=== PATIENT | female | born 1985 | race American Indian/Alaskan Native ===

== ENCOUNTER 2016-10-26 09:54 | Emergency (ER) | payer OTHER ==
[~2016-10-26] VITALS: Ht 162.6 cm; Wt 62.5 kg
[2016-10-26 10:01] VITALS: Ht 162.6 cm; Wt 62.5 kg
[2016-10-26] MEDS ORDERED: IBUP-1542 PO (10:28)
[2016-10-26] MEDS ORDERED: AZIT250T94 PO (10:28)
[2016-10-26] MEDS ORDERED: IBUPROFEN 600 MG TAB PO ONE (10:30)
--- NOTE | 2016-10-26 10:31 | ERD ---
ER Documentation Chief Complaint Date/Time DATE: 10/26/16 TIME: 10:29 Chief Complaint LEFT EAR PAIN SINCE YESTERDAY, WORSE THIS MORNING HPI This 31-year-old female complains of left hip pain since yesterday. She also has cough and congestion. She denies fevers, bleeding or discharge. ROS All systems reviewed and are negative except as per history of present illness. Medications Home Meds Active Scripts Ibuprofen* (Motrin*) 600 Mg Tab, 600 MG PO Q6, #15 TAB Prov:CURTIS GREEN MD 10/26/16 Azithromycin* (Zithromax*) 250 Mg Tablet, 250 MG PO .ZPACK DIRECTED, #6 TAB TAKE 500 MG (2 TABS) THE FIRST DAY THEN 250 MG (1 TAB) DAYS 2-5 Prov:CURTIS GREEN MD 10/26/16 Allergies Allergies: Coded Allergies: No Known Allergy (Unverified , 10/26/16) Physical Exam Vitals Vital Signs Date Time Temp Pulse Resp B/P Pulse Ox O2 Delivery O2 Flow Rate FiO2 10/26/16 10:01 98.1 83 18 119/79 99 Physical Exam Const: []Alert, not ill-appearing. Head: Atraumatic Eyes: Normal Conjunctiva ENT: Normal External Ears, Nose and Mouth.Left TM is red and bulging. There is no abnormalities in the canal. There is no mastoid tenderness. Neck: Full range of motion..~ No meningismus. Resp: Clear to auscultation bilaterally Cardio: Regular rate and rhythm, no murmurs Abd: Soft, non tender, non distended. Normal bowel sounds Skin: No petechiae or rashes Back: No midline or flank tenderness Ext: No cyanosis, or edema Neur: Awake and alert Psych: Normal Mood and Affect Results 24 hrs Current Medications Medications (Trade) Dose Ordered Sig/Russ Route PRN Reason Start Time Stop Time Status Last Admin Dose Admin Ibuprofen (Motrin) 600 mg ONCE ONCE PO 10/26/16 10:30 10/26/16 10:31 Procedures/MDM Patient has signs of left bullous myringitis or otitis media. There is no evidence of mastoiditis or perforation. She will be treated with Zithromax and ibuprofen and return precautions and primary care follow-up. The patient was stable with no new complaints during the ER course. Clinically, there is no current evidence to suggest meningitis, sepsis, acute abdomen, pneumonia, acute coronary syndrome, pulmonary embolism, or any other emergent condition appearing to require further evaluation or hospitalization. The patient should certainly return for any new or worsening symptoms per the aftercare instructions. They should otherwise follow-up with her primary care doctor for reevaluation this week. Departure Diagnosis: Primary Impression: Left ear pain Condition: Stable Patient Instructions: Otitis Media, Abx Tx (Adult) Additional Instructions: Recheck for new or worsening symptoms or primary care doctor. CURTIS GREEN MD Oct 26, 2016 10:31
== END 2016-10-26 10:45 | disposition home or self-care (01) ==
LOC: FTE 09:54
DX: H92.02 Otalgia, left ear (principal)
CPT/HCPCS: Z7502; Z7610; 99283

== ENCOUNTER 2016-11-30 20:20 | Emergency (ER) | payer OTHER ==
[~2016-11-30] VITALS: Ht 167.6 cm; Wt 70.0 kg
[~2016-11-30 20:20] MED LIST: AZIT250T94 PO; IBUP-1542 PO
[2016-11-30 20:25] VITALS: Ht 167.6 cm; Wt 70.0 kg
[2016-11-30] MEDS ORDERED: BACI28.34 TOP (21:09)
--- NOTE | 2016-11-30 22:51 | ERD ---
ER Documentation Chief Complaint Chief Complaint bib self, cc: left hand index finger laceration HPI Patient is a 31-year-old [id number] female presenting to the emergency department with complaints of laceration to her left index finger which occurred just prior to arrival when she accidentally sliced her finger with a kitchen knife. She believes her tetanus is up-to-date currently. She denies other injuries, denies pain or other symptoms at this time. ROS All systems reviewed and are negative except as per history of present illness. Medications Home Meds Active Scripts Bacitracin* (Bacitracin Zinc Oint*) 28.35 Gm Oint, 1 APPLIC TOP BID, #1 TUB APPLI TO Prov:TAMANNA GUZMAN PA-C 11/30/16 Ibuprofen* (Motrin*) 600 Mg Tab, 600 MG PO Q6, #15 TAB Prov:CURTIS GREEN MD 10/26/16 Azithromycin* (Zithromax*) 250 Mg Tablet, 250 MG PO .ZPACK DIRECTED, #6 TAB TAKE 500 MG (2 TABS) THE FIRST DAY THEN 250 MG (1 TAB) DAYS 2-5 Prov:CURTIS GREEN MD 10/26/16 Allergies Allergies: Coded Allergies: No Known Allergy (Unverified , 10/26/16) PMhx/Soc Medical and Surgical Hx: pt denies Medical Hx, pt denies Surgical Hx Hx Alcohol Use: Yes (every other day) Hx Substance Use: No Hx Tobacco Use: Yes Smoking Status: Current some day smoker Physical Exam Vitals Vital Signs Date Time Temp Pulse Resp B/P Pulse Ox O2 Delivery O2 Flow Rate FiO2 11/30/16 20:25 98.5 81 19 131/83 100 Physical Exam Const: Nontoxic, well-appearing female in no acute distress. Head: Atraumatic Eyes: Normal Conjunctiva ENT: Normal External Ears, Nose and Mouth. Ext: There is an approximate 1 cm laceration just proximal to the PIP joint of the left index finger on the dorsal surface. There is no active bleeding currently. Neur: Awake and alert Psych: Normal Mood and Affect Procedures/MDM 31-year-old female presents to the emergency department with complaints of laceration to her left index finger. Laceration Repair by me: Anesthesia: Not indicated Location: Dorsal aspect of the left index finger just proximal to the PIP joint. Tendon/Joint/Nerves: No injury Foreign body: None detected after copious irrigation and exploration Technique: Dermabond skin glue Complexity: No subcutaneous sutures/mucosal repair/ edge excision Post Closure Length: 1 cm Patient's bleeding was easily controlled in the department and there is no indication of anemia. No evidence of compartment syndrome, neurologic injury, vascular injury, open joint, tendon laceration, or foreign body. Patient is appropriate for outpatient follow up. 48 hour wound check. Scar minimization instructions given. Departure Diagnosis: Primary Impression: Finger laceration Encounter type: initial encounter Finger: index finger Damage to nail status: without damage Foreign body presence: without foreign body Laterality: left Qualified Code: S61.211A - Laceration of left index finger without foreign body without damage to nail, initial encounter Condition: Fair Patient Instructions: Laceration, Extremity (Skin Glue) Referrals: [facility] YOU HAVE RECEIVED A MEDICAL SCREENING EXAM AND THE RESULTS INDICATE THAT YOU DO NOT HAVE A CONDITION THAT REQUIRES URGENT TREATMENT IN THE EMERGENCY DEPARTMENT. FURTHER EVALUATION AND TREATMENT OF YOUR CONDITION CAN WAIT UNTIL YOU ARE SEEN IN YOUR DOCTORS OFFICE WITHIN THE NEXT 1-2 DAYS. IT IS YOUR RESPONSIBILITY TO MAKE AN APPOINTMENT FOR FOLOW-UP CARE. IF YOU HAVE A PRIMARY DOCTOR --you should call your primary doctor and schedule an appointment IF YOU DO NOT HAVE A PRIMARY DOCTOR YOU CAN CALL OUR PHYSICIAN REFERRAL HOTLINE AT IF YOU CAN NOT AFFORD TO SEE A PHYSICIAN YOU CAN CHOSE FROM THE FOLLOWING [facility] [place] [address] [facility]. [facility] [place] [address] [facility] [facility] [address] [facility]. [facility] [address] [facility]. [facility] [address] [facility]. [facility]. [address] Additional Instructions: Call your primary care doctor TOMORROW for an appointment during the next 1-2 days.See the doctor sooner or return here if your condition worsens before your appointment time. TAMANNA GUZMAN PA-C Nov 30, 2016 22:51
== END 2016-11-30 21:16 | disposition home or self-care (01) ==
LOC: FTE 20:20
DX: S61.211A Laceration without foreign body of left index finger without damage to nail, initial encounter (principal); F17.210 Nicotine dependence, cigarettes, uncomplicated; W26.0XXA Contact with knife, initial encounter; Y92.9 Unspecified place or not applicable
CPT/HCPCS: 12001; Z7502

== ENCOUNTER 2016-12-02 12:11 | Emergency (ER) | payer OTHER ==
[~2016-12-02] VITALS: Ht 162.6 cm; Wt 60.5 kg
[~2016-12-02 12:11] MED LIST changes: +BACI28.34 TOP
[2016-12-02 12:15] VITALS: Ht 162.6 cm; Wt 60.5 kg
--- NOTE | 2016-12-02 13:45 | ERD ---
ER Documentation Chief Complaint Chief Complaint LEFT EAR PAIN W/DRAINING X2 DAYS HPI 31 year old female comes in with left posterior ear pain with difficulty hearing for 2 days. Pain is achy, diffuse and she states that this occurred about 2 months ago she was treated with Zithromax and her hearing has decreased since then. She feels like there is some draining and popping sensation in the ear as well. She denies fevers or chills. ROS All systems reviewed and are negative except as per history of present illness. Medications Home Meds Active Scripts Ibuprofen* (Motrin*) 600 Mg Tab, 600 MG PO Q6, #30 TAB Prov:MARIA L LOPEZ PA-C 12/02/16 Ciprofloxacin Hcl* (Ciprofloxacin Hcl*) 500 Mg Tablet, 500 MG PO BID for 10 Days , TAB Prov:MARIA L LOPEZ PA-C 12/02/16 Amoxicillin/Potassium Clav (Amox-Clav 875-125 mg Tablet) 875-125 mg Tab, 1 TAB PO BID for 10 Days, #20 TAB Prov:MARIA L LOPEZ PA-C 12/02/16 Bacitracin* (Bacitracin Zinc Oint*) 28.35 Gm Oint, 1 APPLIC TOP BID, #1 TUB APPLI TO Prov:TAMANNA GUZMAN PA-C 11/30/16 Ibuprofen* (Motrin*) 600 Mg Tab, 600 MG PO Q6, #15 TAB Prov:CURTIS GREEN MD 10/26/16 Azithromycin* (Zithromax*) 250 Mg Tablet, 250 MG PO .ZPACK DIRECTED, #6 TAB TAKE 500 MG (2 TABS) THE FIRST DAY THEN 250 MG (1 TAB) DAYS 2-5 Prov:CURTIS GREEN MD 10/26/16 Allergies Allergies: Coded Allergies: No Known Allergy (Unverified , 10/26/16) PMhx/Soc Hx Alcohol Use: Yes (every other day) Hx Substance Use: No Hx Tobacco Use: Yes Physical Exam Vitals Vital Signs Date Time Temp Pulse Resp B/P Pulse Ox O2 Delivery O2 Flow Rate FiO2 12/02/16 12:15 98.6 89 18 118/75 100 Physical Exam General: Well-developed, well-nourished. The patient appears in no acute distress. HEENT: Head is normocephalic, atraumatic. No scleral icterus. Ear, right TM is normal, left TM is bulging and erythematous, there is possible tenderness across mastoid and postauricular region. There is no evidence of mass, cellulitis. No rashes. Neck: Supple. Nontender. Lungs: Clear to auscultation. Normal air movement. Heart: Regular rate and rhythm. S1 and S2 are normal. No murmurs, gallops, or rubs. Abdomen: Soft, nontender, nondistended. Bowel sounds are normoactive. Extremities: No clubbing or cyanosis. Normal pulses. Moving extremities x 4. No weakness. Neurologic: Alert and oriented 3. No focal deficits. Skin: Normal turgor. No rash or lesions. Results 24 hrs DIAGNOSTIC IMAGING REPORT Patient: DICKSON RASMUSSEN : 1985 Age: 31 Sex: F MR #: [id number] DOS: 12/02/16 1328 Ordering MD: MARIA L LOPEZ PA-C Location: [facility] Room/Bed: PROCEDURE: CT orbits noncontrast CLINICAL INDICATION: Left ear pain. Evaluate for mastoiditis. TECHNIQUE: Noncontrast CT of the orbits was obtained. Coronal and sagittal re- formations were provided. The administered radiation dose was CTDI 30.47 mGy, DLP 408.69 mGycm. One or more of the following dose reduction techniques were used: Automated exposure control, Adjustment of the mA and/or kV according to patient size, or Use of iterative reconstruction technique. COMPARISON: There are no similar studies submitted for comparison. FINDINGS: Evaluation is limited without intravenous contrast. There is no acute fracture.The bilateral globes are intact.There is no orbital hematoma.The bilateral optic nerves are normal in size.The bilateral extraocular muscles are within normal limits. No definite orbital mass is identified. There is a small left sphenoid sinus mucous retention cyst/polyp. There is mild bilateral ethmoid sinus mucosal thickening. There is minimal bilateral maxillary sinus mucosal thickening. The visualized portions of the brain are unremarkable. No destructive osseous lesion is identified. There are mild left mastoid air cell effusions. There is mild opacification of the left middle ear along the medial aspect of the left tympanic membrane. There is no definite evidence of ossicular erosions. IMPRESSION: Evaluation for abscess is limited without intravenous contrast. 1. Mild opacification of the left middle ear along the medial aspect of the left tympanic membrane. There is no definite evidence of ossicular erosions. There are mild left mastoid air cell effusions. Findings are suggestive of mild left otitis media/mastoiditis. No definite left mastoid subperiosteal abscess is identified. A cholesteatoma is not entirely excluded. 2. The bilateral globes are intact. There is no post septal orbital hematoma. 3. No acute fracture. Further findings as detailed above. RPTAT: PP .Guerrero Mayer MD, MD Date Time Electronically viewed and signed by .Guerrero Mayer MD, MD on 12/02/2016 14:04 .F/ Procedures/MDM 31-year-old female presents with left-sided posterior ear pain and inner ear pain, most consistent with acute otitis media. There is questionable tenderness that is postauricular, but is not distinctly over the mastoid process. CT does not show obvious mastoiditis, this is most likely otitis media with referred pain to the external ear. She will be covered, I with Augmentin and Cipro, and is to follow-up with ENT outpatient. Findings of the CT and patient presentation were discussed with my attending physician, Dr. Reagan agrees with the plan. Departure Diagnosis: Primary Impression: Otitis media, left Condition: MARIA L Reilly PA-C Dec 02, 2016 13:44
--- NOTE | 2016-12-02 14:04 | RADRPT ---
PROCEDURE: CT orbits noncontrast CLINICAL INDICATION: Left ear pain. Evaluate for mastoiditis. TECHNIQUE: Noncontrast CT of the orbits was obtained. Coronal and sagittal re-formations were provid ed. The administered radiation dose was CTDI 30.47 mGy, DLP 408.69 mGycm. One or more of the follow ing dose reduction techniques were used: Automated exposure control, Adjustment of the mA and/or kV according to patient size, or Use of iterative reconstruction technique. COMPARISON: There are no similar studies submitted for comparison. FINDINGS: Evaluation is limited without intravenous contrast. There is no acute fracture.The bilateral globes are intact.There is no orbital hematoma.The bilatera l optic nerves are normal in size.The bilateral extraocular muscles are within normal limits. No def inite orbital mass is identified. There is a small left sphenoid sinus mucous retention cyst/polyp. There is mild bilateral ethmoid si nus mucosal thickening. There is minimal bilateral maxillary sinus mucosal thickening. The visualize d portions of the brain are unremarkable. No destructive osseous lesion is identified. There are mild left mastoid air cell effusions. There i s mild opacification of the left middle ear along the medial aspect of the left tympanic membrane. T here is no definite evidence of ossicular erosions. IMPRESSION: Evaluation for abscess is limited without intravenous contrast. 1. Mild opacification of the left middle ear along the medial aspect of the left tympanic membrane. There is no definite evidence of ossicular erosions. There are mild left mastoid air cell effusions. Findings are suggestive of mild left otitis media/mastoiditis. No definite left mastoid subperioste al abscess is identified. A cholesteatoma is not entirely excluded. 2. The bilateral globes are intact. There is no post septal orbital hematoma. 3. No acute fracture. Further findings as detailed above. RPTAT: PP .Guerrero Mayer MD, Date Time Electronically viewed and signed by .Guerrero Mayer MD, MD on 12/02/2016 14:04 .F/
[2016-12-02] MEDS ORDERED: AMOX1TAB10 PO (14:16)
[2016-12-02] MEDS ORDERED: IBUP-1542 PO (14:16)
[2016-12-02] MEDS ORDERED: CIPR500T4 PO (14:16)
== END 2016-12-02 14:47 | disposition home or self-care (01) ==
LOC: FTE 12:11
DX: H66.92 Otitis media, unspecified, left ear (principal)
CPT/HCPCS: 70480; Z7502

== ENCOUNTER 2017-10-28 20:09 | Emergency (ER) | END 2017-10-28 23:29 | disposition home or self-care (01) ==